=== PATIENT | male | born 1985 | race Caucasian/White ===

== ENCOUNTER 2024-02-27 08:48 | Outpatient (CLI) | payer OTHER, SELFPAY ==
--- NOTE | 2024-02-27 08:57 | MR_ITS ---
WS: [id number] MRI HEAD WITH CONTRAST TECHNIQUE: Sagittal T1, T2 axial, T2 axial FLAIR, axial susceptibility weighted imaging, axial diffus ion weighted images, and coronal T2 images were obtained. Pre and post-T1 axial and post T1 coronal i mages. ADC and FSPGR images. CLINICAL INFORMATION: DAILY MIGRAINES/HX OF TBI COMPARISON: None. FINDINGS: No evidence of restricted diffusion to suggest acute ischemia. Ventricular system and basilar cistern s are patent. No suspicious intracranial signal abnormalities. Normal rodriguez-white differentiation. Nor mal posterior fossa. Normal vascular flow voids at the skull base. No extra-axial fluid collections. No evidence of mass or mass effect. Small retention cyst LEFT maxillary sinus. Paranasal sinuses are well aerated. Mastoid air cells are well aerated. Normal optic chiasm and pituitary infundibulum. Temporal lobes and hippocampal formations are normal in appearance. No hemosiderin on the susceptibly weighted images. No abnormal intracranial enhancemen t. Normal dural venous sinuses. No other suspicious findings. MR/MR head wo/w con [id number] IMPRESSION: 1. No evidence of restricted diffusion to suggest acute ischemia. 2. No suspicious intracranial signal abnormalities 3. No hemosiderin on the susceptibility weighted images. 4. No abnormal gadolinium enhancement. 5. Small retention cyst LEFT maxillary sinus measuring 11 mm.
[2024-02-27] MEDS: gadobenate dimeglumine 20 mL vial IV (10:27)
== END 2024-02-27 08:49 | disposition home or self-care (01) ==
LOC: RAD 08:51
PROVIDERS: PCP Nurse Practitioner; Visit Provider Nurse Practitioner
DX: J34.1 Cyst and mucocele of nose and nasal sinus (principal)
CPT/HCPCS: 70553

== ENCOUNTER 2024-04-18 12:32 | Outpatient (CLI) | payer OTHER, SELFPAY ==
--- NOTE | 2024-04-18 12:34 | MR_ITS ---
WS: [id number] MRI RIGHT SHOULDER HISTORY: R SHOULDER PAIN COMPARISON: None available. TECHNIQUE: Multiplanar sequences of the shoulder joint are submitted. Normal AC joint. Very tiny amount of fluid in the subdeltoid bursa. Very small osteophyte with mild s ubacromial impingement. No os acromion. Normal position of the biceps tendon. No muscle atrophy or edema. Supraspinatus and infraspinatus tendons are intact. No tears. There is ab normal signal in the rotator cuff interval. There is increased fluid and edema in the rotator cuff in terval. The distal subscapularis tendon is being encroached upon by narrowing of the cortical humeral interval. There is thickening and edema within the adjacent middle glenohumeral ligament. There is f luid in the distal subscapularis tendon extending along the tendon sheath. Very tiny insertion site t ear is identified within the subscapularis tendon. Abnormal signal in the central anterior labrum consistent with a tear. MR/MR shoulder RT wo con* [id number] IMPRESSION: 1. Very tiny insertion site tear involving the subscapularis tendon with inter stitial extension. 2. Mild thickening of the middle glenohumeral ligament. 3. Torn anterior labrum. 4. Small amount of fluid in the rotator cuff interval.
== END 2024-04-18 12:33 | disposition home or self-care (01) ==
PROVIDERS: PCP Nurse Practitioner; Visit Provider Nurse Practitioner
DX: M75.111 Incomplete rotator cuff tear or rupture of right shoulder, not specified as traumatic (principal); S43.431A Superior glenoid labrum lesion of right shoulder, initial encounter; X58.XXXA Exposure to other specified factors, initial encounter
CPT/HCPCS: 73221

== ENCOUNTER → 2024-08-28 08:35 | Outpatient (BNVA) | payer OTHER, SELFPAY | PROVIDERS: PCP Nurse Practitioner; Visit Provider Orthopaedic Surgery | DX: M25.511 Pain in right shoulder (principal); Z01.818 Encounter for other preprocedural examination; G89.29 Other chronic pain | CPT/HCPCS: 36415; 73030; 80053; 81001; 85025; 99204 ==

== ENCOUNTER 2024-09-19 09:30 | Day surgery (SDC) | payer OTHER, SELFPAY ==
[2024-09-19] VITALS (10 sets, daily range): BP systolic 100–163; BP diastolic 60–89; PULSE 68–97; RESP 9–28; TEMP 36.4–36.7; O2SAT 91–99; BMI 36.1
[2024-09-19] MEDS: sodium chloride 0.9% 1,000 ML 30 ML IV (10:34)
--- NOTE | 2024-09-19 11:13 | ANES.PREANE2 ---
Pre-Anesthetic Assessment Height/Weight: Height 5 ft 8 in Weight 238 lb Temp Pulse Resp BP Pulse Ox O2 Del Method 97.7 F 68 18 163/89 99 Room Air 09/19/24 10:25 09/19/24 10:25 09/19/24 10:25 09/19/24 10:25 09/19/24 10:09/19/24 10:26 Preop Diagnosis: Rotator cuff tear Operation Date: 09/19/24 12:20 Proposed Procedures p Right Shoulder diagnostic and surgical arthroscopy(Right) - Hugo Baeza MD s Rotator Cuff Repair(Right) - Hugo Baeza MD s Labral Debridement and possible repair(Right) - Hugo Baeza MD Was Beta Malik taken within 24 hours: Yes Was Clonidine taken within 24 hours: N/A Last intake: Intake Last Liquid Date 09/18/24 Last Liquid Time 22:00 Last Solid Date 09/18/24 Last Solid Time 18:00 Social No alcohol and No tobacco Exam alert, oriented x 3, clear to auscultation bilaterally and regular rate & rhythm Airway Submandibular: within normal limits Cervical ROM: within normal limits Mallampati: Class II Dentition: full Anesthetic Plan ASA status: 2 Anesthesia: General and Regional (specify below) Other: No prior issues with anesthesia NPO since yesterday evening History of GERD, diet controlled Patient has PTSD, prior service. Takes propranolol at home Very active individual, METs greater than 4 Quit smoking in 2016 Plan for general anesthesia with preop nerve block Medications/Allergies Home Medications ?Medication ?Instructions ?Recorded ?Confirmed ?Last Taken ?Type buspirone 10 mg tablet 15 mg PO BID 09/14/24 09/18/24 09/18/24 History propranolol 20 mg tablet 20 mg PO DAILY 09/14/24 09/18/24 09/18/24 History sertraline 25 mg tablet 50 mg PO Q24H 09/14/24 09/18/24 09/18/24 History zolpidem 5 mg tablet (Ambien) 5 mg PO .qhs 09/14/24 09/18/24 09/18/24 History cholecalciferol (vitamin D3) 100 100 mcg PO DAILY 09/19/24 09/19/24 09/15/24 History mcg (4,000 unit) capsule Allergies Allergy/AdvReac Type Severity Reaction Status Date / Time hops Allergy Unknown Verified 09/19/24 10:21 Adhesives Allergy Unknown Uncoded 09/19/24 10:21 Current Medications Generic Name Dose Route Start Last Admin Trade Name Freq PRN Reason Stop Dose Admin Sodium Chloride 1,000 mls @ 30 mls/hr 09/19/24 10:15 09/19/24 10:34 Sodium Chloride 0.9% IV 09/20/24 10:14 30 mls/hr .Q24H JOYA Administration PFSH Anesthesia Social History Smoking and tobacco/nicotine status: former use of tobacco/nicotine Data Anesthesia Cardiac Studies: No Data to Display
--- NOTE | 2024-09-19 11:46 | W.PM.OPSFHP ---
Same Day Surgery H&P Indication for Procedure/HPI DATE OF PROCEDURE: September 19, 2024 CHIEF COMPLAINT/INDICATIONFOR SURGICAL PROCEDURE: Right shoulder pain PREOP DIAGNOSIS: Rotator cuff tear PLANNED PROCEDURE: Operation Date: 09/19/24 12:20 Proposed Procedures p Right Shoulder diagnostic and surgical arthroscopy(Right) - MD hunter Valverde Rotator Cuff Repair(Right) - MD hunter Valverde Labral Debridement and possible repair(Right) - Hugo Baeza MD Medications/Allergies* Home Medications ?Medication ?Instructions ?Recorded ?Confirmed ?Type buspirone 10 mg tablet 15 mg PO BID 09/14/24 09/18/24 History propranolol 20 mg tablet 20 mg PO DAILY 09/14/24 09/18/24 History sertraline 25 mg tablet 50 mg PO Q24H 09/14/24 09/18/24 History zolpidem 5 mg tablet (Ambien) 5 mg PO .qhs 09/14/24 09/18/24 History cholecalciferol (vitamin D3) 100 100 mcg PO DAILY 09/19/24 09/19/24 History mcg (4,000 unit) capsule Allergies/Adverse Reactions Allergy/AdvReac Type Severity Reaction Status Date / Time hops Allergy Unknown Verified 09/19/24 10:21 Adhesives Allergy Unknown Uncoded 09/19/24 10:21 Current Medications: Generic Name Dose Route Start Last Admin Trade Name Freq PRN Reason Stop Dose Admin Sodium Chloride 1,000 mls @ 30 mls/hr 09/19/24 10:15 09/19/24 10:34 Sodium Chloride 0.9% IV 09/20/24 10:14 30 mls/hr .Q24H JOYA Administration Pertinent History/Comorbid Conditions* Social History Smoking and tobacco/nicotine status: former use of tobacco/nicotine Pertinent Exam Findings alert, oriented x 3, clear to auscultation bilaterally, regular rate & rhythm, operative site marked and procedure specific exam findings Recommendations Surgery/Procedure today Coding Level of Care Code Acute Code for Chg Angelita
--- NOTE | 2024-09-19 11:46 | SUR.PREOP ---
Timeout was completed at bedside with TREVER Moore, and RN. Interscalene block was administered to right neck/shoulder using 2mg versed, 50mcg fentanyl and 30ml of 0.5% ropivicaine. Patient tolerated well.
--- NOTE | 2024-09-19 11:46 | ANES.PROC ---
Anesthesia Procedures Procedure/Date: 09/19/24 Nerve Block ^: Nerve Block 1: Main Anesthesia: other (100 mcg fentanyl and 2 mg Versed) Time Out Performed: Yes Consent: requested by attending/covering physician and from patient Nerve block location: interscalene Anesthesia monitors applied: pulse oximetry, EKG, BP cuff and oxygen Nerve block position: supine Anesthetic Used: ropivicaine 0.5% Amount of anesthesia used (mL): 30 Ultrasound used to: recognize landmarks Nerve Stimulator Used?: Yes Interscalene/Femoral BLK: other needle (pjunk) Injection: neg aspiration of heme Patient Tolerated Procedure: well Complications: none Additional Comments: Decadron 4 mg added to block
[2024-09-19] MEDS: ceFAZolin 2,000 mg SDV 2000 MG IVP (12:03)
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
[2024-09-19] MEDS: HYDROcodone-acetaminophen 7.5-325 mg Tablet 1 TAB PO (14:35)
--- NOTE | 2024-09-19 14:44 | ANE.PACU2 ---
Inpatient post-anesthesia follow up: Airway intact: Yes Vital signs: Temperature 97.8 F Pulse Rate 92 Respiratory Rate 20 Blood Pressure 127/82 Pulse Oximetry 95 Oxygen Delivery Me thod Room Air Oxygen Flow Rate Fraction of Inspir ed Oxygen Hydration adequate: Yes Nausea and vomiting: No Pain level: 1 Mental status: Baseline
== END 2024-09-19 14:44 | disposition home or self-care (01) ==
PROVIDERS: PCP Nurse Practitioner; Visit Provider Orthopaedic Surgery
PROC: (CPT 29805; principal; 2024-09-19 12:20)
PROC: (CPT 29827; 2024-09-19 12:20)
DX: M75.101 Unspecified rotator cuff tear or rupture of right shoulder, not specified as traumatic (principal); S43.491A Other sprain of right shoulder joint, initial encounter; M75.41 Impingement syndrome of right shoulder; M75.51 Bursitis of right shoulder; M19.011 Primary osteoarthritis, right shoulder; K21.9 Gastro-esophageal reflux disease without esophagitis; Z87.891 Personal history of nicotine dependence; Z79.899 Other long term (current) drug therapy; F43.10 Post-traumatic stress disorder, unspecified; X58.XXXA Exposure to other specified factors, initial encounter
CPT/HCPCS: 29823; 29826; 29824; J0690; J1100; J2250; J2371; J2405; J2704; J2795; J3010; J3490; J7030; J9999

== ENCOUNTER → 2024-10-04 08:05 | Outpatient (BNVA) | payer OTHER, SELFPAY | PROVIDERS: PCP Nurse Practitioner; Visit Provider Orthopaedic Surgery | DX: M25.511 Pain in right shoulder (principal); G89.29 Other chronic pain; Z98.890 Other specified postprocedural states | CPT/HCPCS: 99024 ==

== ENCOUNTER → 2024-11-06 07:49 | Outpatient (BNVA) | payer OTHER, SELFPAY | PROVIDERS: PCP Nurse Practitioner; Visit Provider Orthopaedic Surgery | DX: Z98.890 Other specified postprocedural states (principal) | CPT/HCPCS: 99024 ==

== ENCOUNTER 2025-02-21 07:38 | Outpatient (CLI) | payer OTHER, SELFPAY ==
--- NOTE | 2025-02-21 07:43 | USR_ITS ---
PROCEDURE INFORMATION: Exam: US Soft Tissue Head and Neck, Thyroid Exam date and time: 02/21/2025 7:46 AM Age: 39 years old Clinical indication: Condition or disease; Thyroid disorder; Other: Hyperthyroidism TECHNIQUE: Imaging protocol: Real-time ultrasound scan of the neck with image documentation. Exam focused on the thyroid. COMPARISON: MR head wo/w con [id number] 02/27/2024 10:08 AM FINDINGS: Right thyroid lobe: Right lobe measures 4.8 x 1.6 x 1.6 cm. Right lobe echogenicity is normal. An inferior pole nodule in the right lobe measures 6 x 3 x 6 mm. The nodule has a spongiform appearance (TR 1). Left thyroid lobe: The left lobe measures 5.0 x 1.8 x 2.1 cm. Left lobe echogenicity is normal. No left lobe nodules. Isthmus: The thyroid isthmus measures 0.3 mm. Lymph nodes: No evidence for cervical lymphadenopathy. US/US thyroid [id number] IMPRESSION: 1. Single, small TR 1 nodule in the right thyroid lobe, requiring no follow-up. 2. Otherwise normal thyroid gland.
== END 2025-02-21 07:39 | disposition home or self-care (01) ==
LOC: RAD 07:39
PROVIDERS: PCP Nurse Practitioner; Visit Provider Nurse Practitioner
DX: E05.90 Thyrotoxicosis, unspecified without thyrotoxic crisis or storm (principal)
CPT/HCPCS: 76536